=== PATIENT | female | born 1980 | race Hispanic/Latino ===

== ENCOUNTER 2016-08-13 23:44 | Inpatient (IN) | payer MEDICAID ==
[~2016-08-13] VITALS: Ht 139.7 cm; Wt 66.7 kg
[~2016-08-13 23:44] MED LIST: DSS100 PO; MOT800 PO; PNV1TABL62 PO
[2016-08-14] MEDS ORDERED: Lactated Ringer's 1,000 ML IV PRN (08:17)
[2016-08-14] MEDS ORDERED: Sodium Chloride LOK Flush 10 mL Syringe IVFLUSH PRN (08:20)
[2016-08-14] MEDS ORDERED: Carboprost 250 mCg/mL Inj IM PRN ×2 (08:20→16:40)
[2016-08-14] MEDS ORDERED: Hemorrhage Kit, Post Partum XX ONE ×2 (08:20→16:40)
[2016-08-14] MEDS ORDERED: Oxytocin 10 Unit/mL Inj IM PRN ×2 (08:20→16:40)
[2016-08-14] MEDS ORDERED: Methylergonovine 0.2 mg/mL Inj IM PRN ×2 (08:20→16:40)
[2016-08-14] MEDS ORDERED: Oxytocin 30 Units/500 mL LR 30 UNITS in IV Premix 1 EACH IV PRN ×2 (08:20→16:40)
[2016-08-14] MEDS: Lactated Ringer's 1,000 ML IV SCH (08:42)
[2016-08-14 08:54] LABS: Mean Corpuscular Hemoglobin 25.4 pg (27.0-35.0); Mean Corpuscular Volume 81.2 fL (81-100)
--- NOTE | 2016-08-14 11:29 | PCM.HPOB ---
Subjective Date of Service: Aug 14, 2016 Referring Provider: Admitting Physician: Yanet Bruner MD Primary Care Physician: Yanet Bruner MD Attending Physician: Yanet Bruner MD Chief Complaint here for scheduled Induction. History of Present History of Present Illness 36 Y/O at 42 weeks 1days by 11 weeks US. complicated with: 1. AMA. 2. Grandmultip. 3. Late to care (first visit 29 weeks) 4. Depo injection at early . 5. Desires sterilization, consent signed 06/02/16. 6. Mixteco speaking. 7. Elevated 1 hr GTT, 3 hrs GTT WNL. No complaint today. Patient missed prental care visit for the last 3 weeks and presented to [facility] last night with no complaint but desires reassurance re . Patient found to be stable m, not n active labor and reassuring FHT and we were contacted and labor induction was scheduled at our hospital today. Patient has no compliant today, irregular contractions, no VB and no loss of fluid. Goood movements. Past Medical History Obstetrical History: 6 with no complications. Gynecologic History: Denies hX of STI or abn pap smears. Medical History: Headaches. Surgical History: none Hx Tobacco Use: No Hx Alcohol Use: No Hx Substance Use: No Past Family History Family History Father: DM-2 , Mother: HTN. Review of Systems ROS negative Allergy Coded Allergies: No Known Allergies (Unverified Allergy, 01/18/12) Exam Constitutional: Well-developed HEENT: Atraumatic Lungs: Clear to Auscultation Heart: Regular Rate/Rhythm, Normal S1, Normal S2 Abdomen: Gravid Extremities: Pulses Palpable x4 Neurological/Psychiatric: Alert, Oriented X3 Neuro: Reflexes 2+ Additional Information 3/60%/soft/mid position/ -3 Garces score 7 Labs/Diagnostics Lab/Diagnostic Information Laboratory Tests 72 Hours Test 08/14/16 07:55 White Blood Count 5.6th/mm3 (3.8-10.1) Red Blood Count 4.10mil/mm3 (3.90-5.20) Hemoglobin 10.4g/dL (12.0-15.6) Hematocrit 33.3% (35.0-46.0) Mean Corpuscular Volume 81.2fL (81-100) Mean Corpuscular Hemoglobin 25.4pg (27.0-35.0) Mean Corpuscular Hemoglobin Concent 31.2% (32.0-37.0) Red Cell Distribution Width 14.6% (12.3-15.4) Platelet Count 231bil/L (150-400) Maternal Blood Type: O (positive) Group B Strep Results: Negative (06/29/16) Additional Information Rubella immune HepBAg negative RPR negative. HIV negative Pap smear WNL, HPV negative. 05/18/16. 1 hr (173), 3 hrs WNL( 67, 165, 142, 98) OB Intrapartum Assessment/Plan Assessment 36 Y/O at 42 weeks 1days by 11 weeks US. Induction for Post date. Favorable cervix. complicated with: 1. AMA. 2. Grandmultip. 3. Late to care (first visit 29 weeks) 4. Depo injection at early . 5. Desires sterilization, consent signed 06/02/16. 6. Mixteco speaking. 7. Elevated 1 hr GTT, 3 hrs GTT WNL. Pain Management: start Pitocin per protocol. Farrukh Pozo MD Aug 14, 2016 11:29
[2016-08-14] MEDS ORDERED: Lactated Ringer's 1,000 ML IV SCH (16:38)
[2016-08-14] MEDS ORDERED: Benzocaine (Dermoplast) 20% 60 Gm Spray TOPICAL PRN (16:40)
[2016-08-14] MEDS ORDERED: oxyCODONE-Acetamin 5-325 mg Tablet PO PRN (16:40)
[2016-08-14] MEDS ORDERED: Witch Hazel-Glycerin Pads TOPICAL PRN (16:40)
[2016-08-14] MEDS ORDERED: LANOlin HPA 7 Gm Ointment TOPICAL PRN (16:40)
[2016-08-14] MEDS: Ascorbic Acid 500 mg Tablet PO SCH (17:57)
[2016-08-15 07:00] LABS: Mean Corpuscular Hemoglobin 25.4 pg (27.0-35.0); Mean Corpuscular Volume 79.4 fL (81-100)
--- NOTE | 2016-08-15 08:15 | OP ---
[address] [address] OPERATIVE REPORT PATIENT: FINN RYDER : 1980 MR#: [id number] ADMIT: 08/14/2016 JOB ID: [id number] DATE OF SURGERY: 08/14/2016 PREOPERATIVE DIAGNOSIS(ES): 1. Intrauterine at 41 weeks and 1 day. 2. Advanced maternal age. 3. Grand multip, late to care. 4. Multiparity desires permanent sterilization. Signed consent on June 02, 2016. 5. Elevated 1 hour diabetes screening, 3 hours glucose tolerance test within normal limits. 6. Exposure to medroxyprogesterone injection at early . POSTOPERATIVE DIAGNOSIS(ES): 1. Intrauterine at 41 weeks and 1 day.Status post normal vaginal delivery. 2. Advanced maternal age. 3. Grand multip, late to care. 4. Multiparity desires permanent sterilization. Signed consent on June 02, 2016. 5. Elevated 1 hour diabetes screening, 3 hours glucose tolerance test within normal limits. 6. Exposure to medroxyprogesterone injection at early . SURGEON: Farrukh Pozo MD PROCEDURE: Normal vaginal delivery. ESTIMATED BLOOD LOSS: 300 mL. FINDINGS: Female delivered in cephalic presentation in left occiput anterior position. Weight 3552 g equivalent to 7 pounds 13 ounces. Apgars 8 at 1 minute and 9 at 5 minutes. No nuchal cord. Clear amniotic fluid. PROCEDURE: This is a 36 years old 8 now para 8-0-0-8 presented at 41 weeks and 1 day for induction of labor. The patient missed care visits since 37 weeks of gestation and presented last night to [facility] to be evaluated and to check on the infant. Patient found to be stable at [facility] and heart tones were reassuring. We were contacted and patient was scheduled for induction today. Patient presented for the induction. Cervix was 3 cm, 60% soft mid position and -3 station. Garces's score was 7. Pitocin was started around 8:43 a.m. The patient progressed in labor and found to be 8 cm dilated at 15:42 100% and -2 station. Patient found to be completely dilated at 15:57. Artificial rupture of membrane was performed. Clear fluid was noted. The patient pushed effectively without epidural to deliver a female at 16:17 in cephalic presentation with left occiput anterior position with no nuchal cord. shoulders were delivered without difficulty. The was placed on the maternal abdomen. Delayed cord clamping was performed after 1 minute. Cord gases were obtained secondary to variable deceleration in the 2nd stage of labor during pushing. Otherwise heart tones were category 1 for most of labor. Cord blood was collected for typing. The placenta was delivered spontaneously intact with 3-vessel cord at 16:25. The uterus was massaged. Estimated blood loss was 300 mL. Oxytocin was started and 800 mcg of Cytotec was placed rectally prophylactically for bleeding. Uterus was firm at this point, bleeding was minimal. Perineum was examined. No evidence of laceration. All instrument, needles, and sponge counts were correct x2. Mother and recovering in the delivery room in a stable condition. Farrukh Vogel, was present and scrubbed for the entire procedure. Cord gasses: Venous pH 7.35, PCO2-42, pO2-32.4, CHCO3-22.7, C-base -2.2. Arterial pH 7.32, pCO2-44, pO2-35, CHCO3-22.5, C-base -3.5. MTDD
--- NOTE | 2016-08-15 08:37 | PCM.PNOBPP ---
Subjective Date of Service Aug 15, 2016 Post : Spontaneous Vaginal Delivery Lochia: Normal Pain Management: PO pain meds Gastrointestinal: Good Appetite, No N/V Postop Activity: Ambulating Independently Group B Strep Results: Negative (06/29/16) Blood Type: O (positive) Labs Laboratory Tests 08/15/16 06:42: White Blood Count 10.1, Red Blood Count 4.02, Hemoglobin 10.2, Hematocrit 31.9, Mean Corpuscular Volume 79.4, Mean Corpuscular Hemoglobin 25.4, Mean Corpuscular Hemoglobin Concent 32.0, Red Cell Distribution Width 14.7, Platelet Count 218 Exam Vital Signs Vital Signs 102/67 57 37.4 Vital Signs: VS reviewed, stable Exam Abdomen: Uterus is, Fundus firm Lungs: Clear to Auscultation, Clear to Percussion Heart: Regular Rate/Rhythm, Normal S1, Normal S2 General: Alert, Oriented X3 OB Post Assessment/Plan Assessment 36 Y/O PPD#1 S/P at at 42 weeks 1days after IOL. 2. Advanced maternal age. 3. Grand multip, late to care. 4. Multiparity desires permanent sterilization. Signed consent on June 02, 2016. 5. Elevated 1 hour diabetes screening, 3 hours glucose tolerance test within normal limits. 6. Exposure to medroxyprogesterone injection at early . Plan is for tubal ligation tomorrow AM at 930, will arrange for lute packer or applier tomorrow. NPO after midnight. Farrukh Pozo MD Aug 15, 2016 08:37
[2016-08-16] MEDS: Lactated Ringer's 1,000 ML IV SCH (08:24)
[2016-08-16] MEDS ORDERED: Lactated Ringer's 1,000 ML IV SCH ×3 (09:31→12:11)
[2016-08-16] MEDS ORDERED: Lactated Ringer's 500 ML IV PRN (11:37)
--- NOTE | 2016-08-16 11:37 | PCM.HPANE ---
Patient Data Surgeon Admitting Provider:Yanet Bruner MD Attending Provider:Yanet Bruner MD Primary Care Physician:Yanet Bruner MD Other Provider:Carrie Mckinnon Anesthesia Reason for Visit Induction INDUCTION Ht/WT & BMI Body Mass Index Allergies Coded Allergies: No Known Allergies (Unverified Allergy, 01/18/12) Past Anesthesia History Anesthesia History: Positive for:: Anesthesia Reactions Diabetes History Hx Diabetes?: No Medications Active Scripts PNV WITH CA,NO.72/IRON,CARB/FA-Expunged Drug, ( PLUS IRON-Expunged Drug , Do Not Sam)1 Each Tablet1 Each PO DAILY #30 Take one tablet every day while you are your baby. Prov:Alexa Moore DO 02/11/13 IBUPROFEN-Expunged Drug, Do Not Renew! (Motrin-Expunged Drug, Do Not Renew!)800 Mg [id number] Mg PO Q6H PRN #30 Take one tablet with food every eight hours as needed for low to medium pain and cramping. Prov:Alexa Moore DO 02/11/13 History History of ENT Problems?: No Hx of Heart Problems?: No Cardiovascular History: Denies:: Congestive Heart Failure Hypertension Hx of Respiratory Problem?: No Respiratory History: Denies:: Tuberculosis Hx Neurologic Problems?: No Hx of GI Problems?: No Hx of Problems?: No Hx Musculoskeletal Problems?: No Hx of Psycho/Social Problems?: No Hx Surgeries?: No Hx Diabetes: No Hx Alcohol Use: NoHx Substance Use: No Smoking Status: Never Smoker Have You Smoked inLast 12 mo: No Stop/Bang Risk Assessment Category Category 1A: Patient has history of documented sleep apnea, and HAS NOT received any narcotic, sedative or anesthesia administration during this stay. Category 1B: Patient has history of documented sleep apnea, and HAS received any narcotic , sedative or anesthesia administration during this stay Category 2: Patient has SUSPECTED Obstructive Sleep Apnea, and HAS received any narcotic , sedative or anesthesia administration during this stay. Category 3: Patient has SUSPECTED Obstructive Sleep Apnea and HAS NOT received narcotic, sedative or anesthesia administration during this stay. Category 4: Outpatient in Procedural Areas with known sleep apnea or who screen positive for High Risk via the STOP/BANG questionnaire. Exam Exam General Appearance: Alert, Oriented X3 HEENT/AIRWAY: MP 2, Neck Movement (FROM) Lungs: Clear to Auscultation, Clear to Percussion Heart: Exam Unremarkable, Regular Rate/Rhythm Meds/Labs/Diagnostics Labs Test 08/15/16 06:42 White Blood Count 10.1th/mm3 (3.8-10.1) Red Blood Count 4.02mil/mm3 (3.90-5.20) Hemoglobin 10.2g/dL (12.0-15.6) Hematocrit 31.9% (35.0-46.0) Mean Corpuscular Volume 79.4fL (81-100) Mean Corpuscular Hemoglobin 25.4pg (27.0-35.0) Mean Corpuscular Hemoglobin Concent 32.0% (32.0-37.0) Red Cell Distribution Width 14.7% (12.3-15.4) Platelet Count 218bil/L (150-400) Plan Impression Patient chart reviewed, patient interviewed and anesthestic plan with risks, benefits, and alternatives discussed, and informed consent obtained. ASA Physical Status: ASA1 Normal Healthy Anesthetic Plan: SAB Bene/Risks/Altern/Consents: Yes HP Complete Prior to Induction: Yes Other We attempted to obtain an manager zone ([facility]) via manager zone on a stick and through the hospital's manager zone service. We were unable to obtain an manager zone through these services. The patient speaks no other language. Dr. Bhagat referred me to Ilan who works in Dr. Bhagat's office. I contacted Liz via [email or web address] and Ilan interpreted for me and the medical team. Universal Winding Machine Operator used during the consent and during the surgery and immediately post-op. Ronald Sigala MD Aug 16, 2016 08:30
[2016-08-16] MEDS ORDERED: MetoCLOpramide 5 mg/mL 2 mL Inj IVPUSH PRN (11:40)
[2016-08-16] MEDS ORDERED: Atropine 0.4 mg/mL Inj IVPUSH PRN (11:40)
[2016-08-16] MEDS ORDERED: Labetalol 5 mg/mL 4 mL Inj IV PRN (11:40)
[2016-08-16] MEDS ORDERED: fentaNYL-PF 50 mCg/mL 2 mL Inj IVPUSH PRN (11:40)
[2016-08-16] MEDS ORDERED: Ondansetron 2 mg/mL 2 mL Inj IVPUSH PRN (11:40)
[2016-08-16] MEDS ORDERED: HYDROmorphone 1 mg/mL Inj IVPUSH PRN (11:40)
[2016-08-16] MEDS ORDERED: EPHEDrine Sulfate 50 mg/mL Inj IVPUSH PRN (11:40)
[2016-08-16] MEDS ORDERED: Phenylephrine 10,000 mCg/mL Inj IVPUSH PRN (11:40)
[2016-08-16] MEDS ORDERED: Oxytocin 30 Units/500 mL LR 30 UNITS in IV Premix 1 EACH IV PRN (12:15)
[2016-08-16] MEDS ORDERED: Methylergonovine 0.2 mg/mL Inj IM PRN (12:15)
[2016-08-16] MEDS ORDERED: LANOlin HPA 7 Gm Ointment TOPICAL PRN (12:15)
[2016-08-16] MEDS ORDERED: Hemorrhage Kit, Post Partum XX ONE (12:15)
[2016-08-16] MEDS ORDERED: Carboprost 250 mCg/mL Inj IM PRN (12:15)
[2016-08-16] MEDS ORDERED: oxyCODONE-Acetamin 5-325 mg Tablet PO PRN (12:15)
[2016-08-16] MEDS ORDERED: Sodium Chloride LOK Flush 10 mL Syringe IVFLUSH PRN (12:15)
[2016-08-16] MEDS ORDERED: Oxytocin 10 Unit/mL Inj IM PRN (12:15)
[2016-08-16] MEDS ORDERED: hydrOXYzine Pamoate 25 mg Capsule PO PRN (12:15)
[2016-08-16] MEDS ORDERED: diphenhydrAMINE 50 mg Capsule PO PRN (12:15)
[2016-08-16] MEDS ORDERED: Acetaminophen IV 1,000 MG in IV Premix 1 EACH IV PRN (12:15)
--- NOTE | 2016-08-16 12:20 | PCM.ANEP2 ---
Post Anesthesia Evaluation ASA/CMS Post Anesthesia VS in Patient's Normal Range?: Yes Resp Stable; Airway Patent?: Yes CV Function & Hydration Stable: Yes Mental Status Recovered?: Yes Pain control Satisfactory?: Yes N/V Control Satisfactory?: Yes Ronald Sigala MD Aug 16, 2016 12:20
--- NOTE | 2016-08-16 12:20 | PCM.ANEP1 ---
Post Anesthesia Phase 1 PACU Phase 1 Assessment Date of Service: Aug 14, 2016 Anesthetic Administered: SAB Level of Alertness: Awake, talking CASTANO's with Equal Strength: No (sab) Pain: No Pain Scale Score: 0 Nausea or Vomiting: No Oxygen Delivery: Room Air Lungs: Clear to Auscultation, Clear to Percussion Summary see anesth record for pacu vs. pacu vss Ronald Sigala MD Aug 16, 2016 12:20
--- NOTE | 2016-08-16 12:46 | PCM.DIOB ---
Obstetrical Disch Instruction Date of Service: Aug 16, 2016 Dates of Hospitalization Date of Hospital Admission Aug 14, 2016 at 07:21 Providers Admitting Physician: Yanet Bruner MD Primary Care Physician: Yanet Bruner MD Attending Physician: Yanet Bruner MD Discharge Diagnosis Discharge Diagnosis status post Normal vaginal delivery 08/14/16 status post post tubal ligation 08/16/16 Problems: Activity Discharge Activity-General: Pelvic Rest for 6 weeks (no sex, no tampon and no douching ), No lifting >10 pounds for 4-6 weeks Dressing and Incisional Care Hygiene: May shower (in 24 hours after your surgery ), NO bathtub, hot tub or whirlpool, Perineal care, Sitz bath Follow Up Plan Follow-up Provider (F9): Farrukh Pozo MD Follow-up appointment: Weeks (Two) Call your provider for: Fever or Chills, Shortness of breath, Heavy vaginal bleeding, Heavy bleeding, Epigastric pain, Excessive constipation, Vaginal discomfort, Red painful breasts, Other (headache, change in vision, chest pain, leg swelling, pain or change in color. ) Farrukh Pozo MD Aug 16, 2016 12:46
[2016-08-16] MEDS ORDERED: IBUP-1827 PO (12:49)
[2016-08-16] MEDS ORDERED: Ascorbic Acid PO (12:49)
[2016-08-16] MEDS ORDERED: DOCU-41 PO (12:49)
[2016-08-16] MEDS ORDERED: OXYC1TAB24 PO (12:49)
[2016-08-16] MEDS ORDERED: Lanolin TOPICAL (12:49)
[2016-08-16] MEDS ORDERED: FERR-74 PO (12:49)
--- NOTE | 2016-08-16 12:52 | PCM.DC.OB ---
Obstetrical Discharge Summary Date of Service Aug 17, 2016 Date of hospital admission Aug 14, 2016 at 07:21 Date of Discharge: Aug 17, 2016 Providers Admitting Physician: Yanet Bruner MD Primary Care Physician: Yanet Bruner MD Attending Physician: Yanet Bruner MD Diagnosis at Time of Discharge 1. Status post normal vaginal delivery 08/14/16. 2. Status post post tubal ligation 08/16/16. 3. Chronic anemia and anemia. 4. Transient elevation in BP positive protein urea, asymptomatic. Problems: Brief History and Physical: Hospital Course: 36 Y/O 1. Status post normal vaginal delivery 08/14/16 at 42 weeks 1days by 11 weeks US. 2. Status post post tubal ligation 08/16/16 3. Chronic anemia and anemia. 4. Transient elevation in BP positive protein urea, asymptomatic. complicated with: 1. AMA. 2. Grandmultip. 3. Late to care (first visit 29 weeks) 4. Depo injection at early . 5. Desires sterilization, consent signed 06/02/16. 6. [place] speaking. 7. Elevated 1 hr GTT, 3 hrs GTT WNL. OUTCOME: Female delivered in cephalic presentation in left occiput anterior position. Weight 3552 g equivalent to 7 pounds 13 ounces. Apgars 8 at 1 minute and 9 at 5 minutes. No nuchal cord. Clear amniotic fluid. DISCHARGE DAY EXAM: Patient is ambulating, tolerating regular diet without nausea or vomiting and voiding without difficulty. Pain was well controlled. No chest pain, no headache or change in vision. VS: Vital Signs (Last) Date Time Temp Pulse Resp B/P Pulse Ox O2 Delivery O2 Flow Rate FiO2 08/17/16 11:06 36.9 50 16 135/62 08/16/16 12:20 Room Air General: Alert, Oriented X3 Lungs: Clear to Auscultation, Clear to Percussion Heart: Regular Rate/Rhythm, Normal S1, Normal S2 Abdomen: Fundus firm Surgical Wound: Incision General Appearance: Steri Strips, Sutures, Intact, Well Approximated, Incision Healing, No Erythema, No Discharge Extremities: No tenderness/swelling, Edema 1+ Lochia: normal. LABS: Laboratory Tests 72 Hours Test 08/14/16 22:20 08/15/16 06:42 08/16/16 14:45 08/16/16 17:33 Hemoglobin 9.5g/dL (12.0-15.6) 10.2g/dL (12.0-15.6) 9.9g/dL (12.0-15.6) Hematocrit 29.9% (35.0-46.0) 31.9% (35.0-46.0) 31.7% (35.0-46.0) White Blood Count 10.1th/mm3 (3.8-10.1) 9.6th/mm3 (3.8-10.1) Red Blood Count 4.02mil/mm3 (3.90-5.20) 3.86mil/mm3 (3.90-5.20) Mean Corpuscular Volume 79.4fL (81-100) 82.1fL (81-100) Mean Corpuscular Hemoglobin 25.4pg (27.0-35.0) 25.6pg (27.0-35.0) Mean Corpuscular Hemoglobin Concent 32.0% (32.0-37.0) 31.2% (32.0-37.0) Red Cell Distribution Width 14.7% (12.3-15.4) 14.9% (12.3-15.4) Platelet Count 218bil/L (150-400) 239bil/L (150-400) Hematology Comments Hold Urine Received (Received) Blood Urea Nitrogen 7mg/dL (6-20) Creatinine 0.43mg/dL (0.57-1.00) Uric Acid 5.0mg/dL (2.6-7.2) Aspartate Amino Transf (AST/SGOT) 22U/L (0-50) Alanine Aminotransferase (ALT/SGPT) 10U/L (0-32) Urine Random Creatinine 35mg/dL (16-392) Urine Random Total Protein 17mg/dL (0-15) Urine Protein/Creatinine Ratio 0.49 Test 08/17/16 05:27 08/17/16 08:45 White Blood Count 8.3th/mm3 (3.8-10.1) Red Blood Count 3.35mil/mm3 (3.90-5.20) Hemoglobin 8.5g/dL (12.0-15.6) 9.0g/dL (12.0-15.6) Hematocrit 27.7% (35.0-46.0) 29.2% (35.0-46.0) Mean Corpuscular Volume 82.7fL (81-100) Mean Corpuscular Hemoglobin 25.4pg (27.0-35.0) Mean Corpuscular Hemoglobin Concent 30.7% (32.0-37.0) Red Cell Distribution Width 14.9% (12.3-15.4) Platelet Count 245bil/L (150-400) labs: Maternal Blood Type: O (positive) Group B Strep Results: Negative (06/29/16) Additional Information Rubella immune HepBAg negative RPR negative. HIV negative Pap smear WNL, HPV negative. 05/18/16. 1 hr (173), 3 hrs WNL( 67, 165, 142, 98) Disposition: home. Discharge Condition: stable. Activity Discharge Activity-General: Pelvic Rest for 6 weeks (no sex, no tampon and no douching ), No lifting >10 pounds for 4-6 weeks Dressing and Incisional Care Hygiene: May shower (in 24 hours after your surgery ), NO bathtub, hot tub or whirlpool, Perineal care, Sitz bath Follow Up Plan Follow-up Provider (F9): Josseline Pozo MD Follow-up appointment: in 2 days for BP check then in Weeks (Two) Call your provider for: Fever or Chills, Shortness of breath, Heavy vaginal bleeding, Heavy bleeding, Epigastric pain, Excessive constipation, Vaginal discomfort, Red painful breasts, Other (headache, change in vision, chest pain, leg swelling, pain or change in color. ) ([Lanolin]) 2 APPLIC/GM OINT 1 APPLIC TOPICAL DIRECTED PRN PRN for breast care Prescribed by: JOSSELINE POZO MD ([Ascorbic Acid]) 500 MG TABLET 500 MG PO BIDWM Prescribed by: JOSSELINE POZO MD Docusate Sodium (Colace) 100 Mg Capsule 100 MG PO BID Prescribed by: JOSSELINE POZO MD Ferrous Sulfate (Feosol) 325 Mg Tablet 325 MG PO BID Prescribed by: JOSSELINE POZO MD Ibuprofen (Ibuprofen) 600 Mg Tablet 600 MG PO Q6H PRN PRN For Mild Pain Prescribed by: JOSSELINE POZO MD PNV WITH CA,NO.72/IRON,CARB/FA-Expunged Drug, ( PLUS IRON-Expunged Drug , Do Not Sam) 1 Each Tablet 1 EACH PO DAILY Take one tablet every day while you are your baby. Prescribed by: DESIREE OJEDA DO oxyCODONE-Acetaminophen 5-325 mg (oxyCODONE-Acetaminophen 5-325 mg) 1 Each Tablet 1-2 TAB PO Q4H PRN PRN For Pain Prescribed by: JOSSELINE POZO MD Discontinued Medications IBUPROFEN-Expunged Drug, Do Not Renew! (Motrin-Expunged Drug, Do Not Renew!) 800 Mg Tablet 800 MG PO Q6H PRN PRN Take one tablet with food every eight hours as needed for low to medium pain and cramping. Prescribed by: DO Sánchez PINA,Josseline Amanda MD Aug 16, 2016 12:52
[2016-08-16] MEDS ORDERED: Glycopyrrolate 0.2 MG/ML 1mL Inj ONE (13:28)
[2016-08-16 15:13] LABS: Mean Corpuscular Hemoglobin 25.6 pg (27.0-35.0); Mean Corpuscular Volume 82.1 fL (81-100)
--- NOTE | 2016-08-16 17:34 | PCM.PNOBPP ---
Subjective Date of Service Aug 16, 2016 Post : Spontaneous Vaginal Delivery Lochia: Normal Pain Management: PO pain meds Gastrointestinal: Good Appetite, No N/V Postop Activity: Other ([place] cather to be removed and to start ambulation trial ) Group B Strep Results: Negative (06/29/16) Blood Type: O (positive) Labs Laboratory Tests 08/16/16 14:45: White Blood Count 9.6, Red Blood Count 3.86, Hemoglobin 9.9, Hematocrit 31.7, Mean Corpuscular Volume 82.1, Mean Corpuscular Hemoglobin 25.6, Mean Corpuscular Hemoglobin Concent 31.2, Red Cell Distribution Width 14.9, Platelet Count 239, Hematology Comments Exam Vital Signs Vital Signs Vital Signs Date Time Temp Pulse Resp B/P Pulse Ox O2 Delivery O2 Flow Rate FiO2 08/16/16 12:20 Room Air Exam Abdomen: Fundus firm Lungs: Clear to Auscultation General: Alert, Oriented X3 Surgical Wound : Dressing & Drainage Status: Dry & Intact OB Post Assessment/Plan Assessment 36 Y/O PPD#2 S/P at at 42 weeks 1days after IOL. POD#0 S/P tubal ligation Elevated BP postoperatively , PIH labs WNL. Problem list during : 1. Advanced maternal age. 2. Late to care. 3. Multiparity desires permanent sterilization. Signed consent on June 02, 2016. S/P T.L 4. Elevated 1 hour diabetes screening, 3 hours glucose tolerance test within normal limits. 5. Exposure to medroxyprogesterone injection at early . Post plan: Other (Continue postoperative care, mointor BP overnight and anticpate discharge home tomorrow. ) Farrukh Pozo MD Aug 16, 2016 17:34
[2016-08-16] MEDS: Ascorbic Acid 500 mg Tablet PO SCH (19:33)
[2016-08-17 05:55] LABS: Mean Corpuscular Hemoglobin 25.4 pg (27.0-35.0); Mean Corpuscular Volume 82.7 fL (81-100)
[2016-08-17] MEDS ORDERED: Sodium Citrate-Citric Acid 15 mL Solution PO SCH (06:00)
[2016-08-17] MEDS: Ascorbic Acid 500 mg Tablet PO SCH (07:58)
[2016-08-17] MEDS ORDERED: FERR-74 PO (08:41)
[2016-08-17] MEDS ORDERED: Ascorbic Acid PO (08:41)
--- NOTE | 2016-08-17 08:51 | NUR ---
received SW referral. Advised DEICER REPAIRER.
[2016-08-17 11:06] VITALS: BP 135/62; PULSE 50; RESP 16
--- NOTE | 2016-08-17 17:08 | NUR ---
[facility] Social work note D/A: CASSIDY is a 36 year old female who just delivered her 8th child. DIRECTOR IMMUNOLOGY consult requested as RODOLFO is currently in snf. RN concerned for any resources available however prior to arrival CASSIDY's 13 and 18 year old children confirm they do not appear to need additional resources. DIRECTOR IMMUNOLOGY met with CASSIDY and two of her children at bedside. CASSIDY and her children report [facility] enrollment and that 18 year old son works at [employer] and assists with transportation. MOB and family interested in TAN[employer] information but otherwise deny any additional needs at discharge. No additional concerns noted. P: CASSIDY is provided with TANF information, however as not parenting concerns noted or additional needs identified they will be discharged home. RN aware. SHILPA Siddiqi
--- NOTE | 2016-08-17 20:58 | OP ---
[address] [address] OPERATIVE REPORT PATIENT: FINN RYDER : 1980 MR#: [id number] ADMIT: 08/14/2016 JOB ID: [id number] DATE OF SURGERY: 08/16/2016 PREOPERATIVE DIAGNOSIS(ES): Status post normal vaginal delivery. day number two. Multiparity,desires permanent sterilization. Advanced maternal age. POSTOPERATIVE DIAGNOSIS(ES): Status post normal vaginal delivery. day number two. Multiparity,desires permanent sterilization. Advanced maternal age. SURGEON: Farrukh Pozo MD. HIGH SCHOOL COACH: Yanet Bruner MD. Brush Painter was required for retraction and exposure and safe completion of the procedure. PROCEDURE: tubal ligation via partial salpingectomy bilaterally, via a mini laparotomy. ANAESTHESIA: Spinal. ESTIMATED BLOOD LOSS: 50 mL. FLUID: 400 mL of IV crystalloid fluid. COMPLICATIONS: None. FINDINGS: Normal tubes. SPECIMENS: Partial salpingectomy specimens of the right and left fallopian tubes were sent to Pathology in separate containers. PROCEDURE: After informed consent was obtained and sterilization consent was reviewed, that was signed June 02, 2016, and was reviewed again prior to the procedure. The patient understands tubal ligation is a permanent procedure and with a failure rate of 1 in 200 with risk of the ectopic in one-third of the failed tubal ligations. Alternatives to tubal ligations were reviewed with the patient including LARC, and male sterilization. All questions were answered. Informed consent was signed. Patient was transferred to the operation room. She was placed under spinal anesthesia. After confirmation of adequacy of the anesthesia, patient was placed in the supine position. Abdomen was prepped in usual sterile fashion for abdominal procedure. A mini laparotomy was performed starting with grasping the skin just below the umbilicus with two Allis clamps. infraumblical ridge was formed. A 4 cm incision was made that was carried down to the fascia with sharp dissection and blunt dissection. The fascial incision was made with Ritter scissors and was extended to the peritoneum that was entered while elevation of either sides of the incision by Allis clamps. No evidence of injury to viscera or blood vessels was noted. The fundus was palpated and tubes were localized. Then the patient was tilted to the right and mini lap was inserted into the left lateral gutter to retract the bowel. An [place] was used to retract the incision and expose the left fallopian tube that was grasped with Brooks clamps, and was traced to the fimbria and brought out through the incision. The middle segment of the fallopian tube was elevated and an area clear of the vascularity was identified and a window was created with the Bovie cautery in the mesosalpinx. Then, an 0 plain suture was passed through the window and the middle segment of the tube was double ligated. Approximately 3 cm of the tube was doubly ligated, then was excised. The remaining stump was cauterized with Bovie cautery at the edges for hemostasis. Hemostasis was ensured at the stump and at the mesosalpinx. The fallopian tube was returned back to the abdominal cavity. The mini lap was removed. Then the patient was tilted to the left and a mini lap was placed in the right lateral gutter and was packed with the hemostat. Then [place] was used to retract and expose the fundus and was traced to the fallopian tube that was grasped with a Charan clamp and was traced to the fimbria and brought out through the incision. The middle segment of the tube was elevated with Charan clamp and area clear of vascularity in the mesosalpinx was identified. A window was created with the Bovie cautery. Then, 0 plain suture material was passed through the created window and the middle segment of the tube was doubly ligated on each side and an approximately 4 cm of the middle segment of the tube was excised. The remaining stump was cauterized for hemostasis at the edges. Some bleeding in the mesosalpinx was identified and was cauterized with good hemostasis. After ensuring the hemostasis, the remaining tube was returned back to the abdominal cavity. The mini lap was removed. Examination of the abdomen was performed. No evidence of bleeding and no evidence of visceral injury was identified. The fascia was closed with 0-Vicryl in a running fashion. The subcutaneous layer was approximated with single interrupted stitch of 2-0 chromic. The skin was closed with 4-0 Vicryl in subcuticular fashion. Steri-Strips were applied followed by a large adhesion bandage. All instrument, needles and sponge counts were correct x2. Patient tolerated the procedure well and was transferred to the room for recovery. I, Farrukh Pozo MD, was present and scrubbed for the entire procedure. JEAN-PIERRE
--- NOTE | 2016-08-18 19:42 | PATH ---
SURGICAL PATHOLOGY Attending Physician:Farrukh Pozo CASE STATUS: Signed Out PATIENT NAME: FINN GAMEZ PID: [id number] : 1980 DATE COLLECTED:08/16/2016 00:00 SPECIMEN: 1: Fallopian Tube, Sterilization 2: Fallopian Tube, Sterilization CLINICAL HISTORY: DESIRES PERMANENT STERILIZATION 1). LEFT FALLOPIAN TUBE 2). RIGHT FALLOPIAN TUBE FINAL DIAGNOSIS: 1. Fallopian Tube, Left, Tubal Ligation: Complete cross-sections of segment of fallopian tube x1. 2. Fallopian Tube, Right, Tubal Ligation: Complete cross-sections of segment of fallopian tube x1. ICD10: Z30.2 GROSS DESCRIPTION: The specimen is received in 2 containers not labeled as to the fixative, labeled with the patient's name. 1). The specimen is sublabeled "left fallopian tube" and consists of a 1.1 x 0.6 x 0.6 CM cylindrical-shaped portion of tissue. The specimen is inked blue. The specimen is sectioned into 3 pieces and entirely submitted in cassette 1A. The specimen is sublabeled "right fallopian tube" and consists of a 1.2 x 0.7 x 0.6 CM cylindrical-shaped portion of tissue. The specimen is inked blue. The specimen is sectioned into 3 pieces and entirely submitted in cassette 2A. 08/16/2016 [facility] ICD-9 CODES: CPT CODES: 1: 65407 2: 56607 Electronically Signed Out Kady Crook MD [facility] Pathology [facility], [place] [address] Technical component performed at [facility], [address] [place] [address] [address], [place], [address]
== END 2016-08-17 14:37 | disposition home or self-care (01) | DRG 767 ==
LOC: FBC 08-14 07:21
PROVIDERS: ADMIT Obstetrics & Gynecology; ATTEND Obstetrics & Gynecology
PROC: 10E0XZZ Delivery of Products of Conception, External Approach (ICD-10-PCS; principal; 2016-08-14)
PROC: 3E033VJ Introduction of Other Hormone into Peripheral Vein, Percutaneous Approach (ICD-10-PCS; 2016-08-14)
PROC: 10907ZC Drainage of Amniotic Fluid, Therapeutic from Products of Conception, Via Natural or Artificial Opening (ICD-10-PCS; 2016-08-14)
PROC: 0UB70ZZ Excision of Bilateral Fallopian Tubes, Open Approach (ICD-10-PCS; 2016-08-16)
DX: O48.0 Post-term pregnancy (principal); O09.43 Supervision of pregnancy with grand multiparity, third trimester; O09.523 Supervision of elderly multigravida, third trimester; O09.33 Supervision of pregnancy with insufficient antenatal care, third trimester; Z37.0 Single live birth; Z30.2 Encounter for sterilization; Z3A.41 41 weeks gestation of pregnancy